=== PATIENT | female | born 1950 | race Two or more races ===

== ENCOUNTER 2023-03-04 11:56 | Emergency (ER) | payer MEDICARE, OTHER ==
[~2023-03-04] VITALS: Ht 157.5 cm; Wt 61.8 kg
[2023-03-04 12:05] VITALS: BP 137/83; PULSE 57; RESP 15; TEMP 97.1; O2SAT 98
[2023-03-04] MEDS ORDERED: PRED20TA PO (15:22)
[2023-03-04] MEDS ORDERED: CYCL-1 PO (15:22)
== END 2023-03-04 15:36 | disposition home or self-care (01) ==
LOC: ER 11:57
DX: M54.12 Radiculopathy, cervical region (principal)
CPT/HCPCS: 99283